=== PATIENT | male | born 1995 | race African-American/Black ===

== ENCOUNTER 2024-09-05 11:21 | Emergency (ER) | payer MEDICAID ==
[~2024-09-05] VITALS: Ht 172.7 cm; Wt 104.0 kg
[2024-09-05 12:13] VITALS: O2SAT 99
[2024-09-05] MEDS ORDERED: BUDE6HFA INH (13:10)
[2024-09-05] MEDS ORDERED: ALBU18HF2 IH (13:10)
[2024-09-05 13:20] VITALS: BP 132/80; PULSE 80; RESP 16; TEMP 36.7; O2SAT 99
== END 2024-09-05 13:22 | disposition home or self-care (01) ==
LOC: ER 11:21
DX: J45.909 Unspecified asthma, uncomplicated (principal); Z76.0 Encounter for issue of repeat prescription; Z79.899 Other long term (current) drug therapy
CPT/HCPCS: 99283